=== PATIENT | male | born 1985 | race Native Hawaiian/Other Pacific Islander ===

== ENCOUNTER 2017-08-28 18:57 | Emergency (ER) | payer MEDICAID, MEDICARE ==
[~2017-08-28] VITALS: Ht 175.3 cm; Wt 100.0 kg
[~2017-08-28 18:57] MED LIST: HTN MED PO; UNKN CHOLESTEROL MED PO
[2017-08-28] MEDS ORDERED: LISI-662 PO (19:03)
[2017-08-28] MEDS ORDERED: KETOROLAC TROMETHAMINE 60 MG/2 ML VIAL IM ONE (21:00)
[2017-08-28 22:37] VITALS: BP 138/78
== END 2017-08-28 22:41 | disposition home or self-care (01) ==
LOC: EMS 18:59
DX: J02.9 Acute pharyngitis, unspecified (principal); K12.0 Recurrent oral aphthae; E78.00 Pure hypercholesterolemia, unspecified; I10 Essential (primary) hypertension
CPT/HCPCS: 87430; 96372; 99283; J1885